=== PATIENT | female | born 1975 | race Caucasian/White ===

== ENCOUNTER 2016-07-28 08:56 | Emergency (ER) | payer SELFPAY ==
[2016-07-28 09:10] VITALS: BP 113/74
[2016-07-28] MEDS ORDERED: HYDROmorphone 1 MG/ML Syringe IM ONE (09:25)
--- NOTE | 2016-07-28 09:26 | EDM.PDOC ---
ED UPPER BACK/NECK PAIN/INJURY - General Chief Complaint: Back Pain or Injury Stated Complaint: BACK PAIN Time Seen by Provider: 07/28/16 09:12 Source of Information: Reports: Patient History Limitations: Reports: No limitations - History of Present Illness INITIAL COMMENTS - FREE TEXT/NARRATIVE: The patient presents with lower thoracic back pain that started about a week ago. A few days ago she got a hair cut and she moved her head forward and that made it worse. She has no numbness, weakness, bowel or bladder problems. Breathing and movement makes it worse. Timing/Duration: Reports: Week(s): (1) Location: Reports: upper Quality: Reports: Sharp Severity: severe Place of Occurrence: home Improves with: Reports: None Worsens with: Reports: None Associated Symptoms: Reports: Denies symptoms - Related Data Allergies/ADRs: Allergies Allergy/AdvReac Type Severity Reaction Status Date / Time Cephalosporins Allergy Unknown Hives Verified 04/26/16 19:33 gabapentin [From Neurontin] AdvReac Unknown Confusion Verified 04/26/16 19:33 clonidine AdvReac Bradycardia Verified 04/26/16 19:33 Home Meds: Home Meds Pregabalin [Lyrica] 1 tab PO TID 06/14/15 [History] Omeprazole 20 mg PO BID 06/16/15 [History] ClonazePAM [KlonoPIN] 0.5 mg PO TID PRN 07/03/15 [History] Methylphenidate HCl [Ritalin] 10 mg PO BID 10/06/15 [History] Sucralfate [Carafate] 10 mg PO TID 10/06/15 [History] traZODone 100 mg PO BEDTIME 10/06/15 [History] Albuterol Sulfate [Proair Hfa] 8.5 gm IH Q4HR PRN 01/19/16 [History] Levofloxacin 500 mg PO DAILY 07/28/16 [History] oxyCODONE HCl/Acetaminophen [Percocet 5-325 mg Tablet] 1 each PO BEDTIME PRN 10/09 [History] Past Medical History HEENT History: Reports: Other (see below) Other HEENT History: dental abscess Cardiovascular History: Reports: Arrhythmia Other Cardiovascular History: SVT, ABLATION Respiratory History: Reports: Asthma Other Respiratory History: NO PROBLEM FOR 15 YRS Gastrointestinal History: Reports: Gastritis, GERD, Helicobacter pylori, PUD Other Gastrointestinal History: ulcers Genitourinary History: Reports: Other (see below) Other Genitourinary History: dysuria 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: Dysfunctional uterine bleeding Other OB/BYN History: Has had 3 miscarriages and hysterectomy Musculoskeletal History: Reports: Back pain, chronic, Fracture, Neck pain, chronic Other Musculoskeletal History: ;RIGHT SHOULDER PAIN, injury to right shoulder one year ago; right roator cuff surgery october Psychiatric History: Reports: ADHD, Anxiety, Depression, Emotional problems, Panic attack, Psych Hospitalization(s), Other (see below) Other Psychiatric History: chronic pain syndrome Endocrine/Metabolic History: Reports: Obesity/BMI 30+, Vitamin D deficiency Hematologic History: Reports: Anemia, Iron deficiency Dermatologic History: Reports: Seborrheic dermatitis Other Dermatologic History: neoplasm of face - Infectious Disease History Infectious Disease History: Reports: Chicken pox - Past Surgical History Other Cardiovascular Surgeries/Procedures: Had an oblation done for the SVT, and has not had any problems with tachycardia, chest pain, or trouble breathing since the procedure Female Surgical History: Reports: D&C, Hysterectomy Musculoskeletal Surgical History: Reports: Shoulder surgery Social & Family History - Family History Family Medical History: Noncontributory GI: Reports: Hepatitis - Tobacco Use Smoking Status *Q: Never Smoker Used Tobacco, but Quit: No Second Hand Smoke Exposure: No - Caffeine Use Caffeine Use: Reports: Energy drinks, Soda - Alcohol Use Days Per Week of Alcohol Use: 0 Number of Drinks Per Day: 4 Total Drinks Per Week: 0 - Recreational Drug Use Recreational Drug Use: No Drug Use in Last 12 Months: No Recreational Drug Type: Reports: LSD (Acid), Marijuana/Hashish, Methamphetamine - Living Situation & Occupation Living situation: Reports: , with significant other Occupation: unemployed ED ROS GENERAL - Review of Systems Review Of Systems: See Below Constitutional: Reports: no symptoms HEENT: Reports: No symptoms Respiratory: Reports: no symptoms Cardiovascular: Reports: No symptoms Endocrine: Reports: no symptoms GI/Abdominal: Reports: No symptoms : Reports: no symptoms Musculoskeletal: Reports: back pain Skin: Reports: no symptoms Neurological: Reports: no symptoms ED EXAM, UPPER BACK/NECK PAIN - Physical Exam Exam: See Below Exam Limited By: No limitations General Appearance: alert, no apparent distress Ears Exam: normal external exam Nose Exam: normal inspection Head Exam: atraumatic, normocephalic Neck Exam: non-tender, normal alignment Cardiovascular/Respiratory: regular rate, rhythm, no M/R/G, normal breath sounds , no respiratory distress GI/Abdominal: soft, non tender, no organomegaly Back Exam: other (Pain upon palpation to the lower thoracic spine worse on the right) Extremities: normal inspection Neurologic: no motor/sensory deficits, alert, oriented x 3 Course - Vital Signs Last Recorded V/S: Last Vital Signs Temp 98.0 F 07/28/16 09:07 Pulse 83 07/28/16 09:07 Resp 20 07/28/16 09:07 BP 113/74 07/28/16 09:07 Pulse Ox 99 07/28/16 09:07 - Re-Assessments/Exams Free Text/Narrative Re-Assessment/Exam: 07/28/16 09:24 I will give her a shot of dilaudid and a few meds. Departure - Departure Time of Disposition: 09:25 Disposition: Home, Self-Care 01 Condition: good Clinical Impression: Thoracic back pain Qualifiers: Chronicity: acute Back pain laterality: right Qualified Code(s): M54.6 - Pain in thoracic spine Referrals: Yusef Ochoa PA-C [Primary Care Provider] - Forms: ED Department Discharge Additional Instructions: Take the muscle relaxer and pain meds as prescribed. Follow up with Yusef Ochoa as needed.
== END 2016-07-28 09:44 | disposition home or self-care (01) ==
LOC: JD.ED 08:56
DX: M54.6 Pain in thoracic spine (principal); J45.909 Unspecified asthma, uncomplicated; K21.9 Gastro-esophageal reflux disease without esophagitis; F41.0 Panic disorder [episodic paroxysmal anxiety]; F32.9 Major depressive disorder, single episode, unspecified; E66.9 Obesity, unspecified; D50.9 Iron deficiency anemia, unspecified; Z85.89 Personal history of malignant neoplasm of other organs and systems; Z90.710 Acquired absence of both cervix and uterus; Z98.890 Other specified postprocedural states; Z79.899 Other long term (current) drug therapy; Z88.1 Allergy status to other antibiotic agents; Z88.8 Allergy status to other drugs, medicaments and biological substances; Z68.41 Body mass index [BMI] 40.0-44.9, adult
CPT/HCPCS: 96372; 99283; J1170; 99284

== ENCOUNTER 2016-08-25 13:36 | Emergency (ER) | payer SELFPAY ==
--- NOTE | 2016-08-25 14:37 | EDM.PDOC ---
ED HPI ENT - General Chief Complaint: ENT Problem Stated Complaint: TOOTH PAIN Time Seen by Provider: 08/25/16 14:03 Source of Information: Reports: Patient, Old records, RN notes reviewed History Limitations: Reports: No limitations - History of Present Illness INITIAL COMMENTS - FREE TEXT/NARRATIVE: The patient states that she has had a upper left toothache on and off for the past few months. She states that she has not seen a dentist about it, citing lack of insurance. She denies recent oral drainage or fever. - Related Data Allergies/ADRs: Allergies Allergy/AdvReac Type Severity Reaction Status Date / Time Cephalosporins Allergy Unknown Hives Verified 08/25/16 14:02 gabapentin [From Neurontin] AdvReac Unknown Confusion Verified 08/25/16 14:02 clonidine AdvReac Bradycardia Verified 08/25/16 14:02 Home Meds: Home Meds Pregabalin [Lyrica] 1 tab PO TID 06/14/15 [History] Omeprazole 20 mg PO BID 06/16/15 [History] ClonazePAM [KlonoPIN] 0.5 mg PO TID PRN 07/03/15 [History] Methylphenidate HCl [Ritalin] 10 mg PO BID 10/06/15 [History] Sucralfate [Carafate] 10 mg PO TID 10/06/15 [History] traZODone 100 mg PO BEDTIME 10/06/15 [History] Albuterol Sulfate [Proair Hfa] 8.5 gm IH Q4HR PRN 01/19/16 [History] oxyCODONE HCl/Acetaminophen [Percocet 5-325 mg Tablet] 1 each PO BEDTIME PRN 10/09 [History] Past Medical History Cardiovascular History: Reports: Arrhythmia (SVT) Respiratory History: Reports: Asthma (remote) Gastrointestinal History: Reports: Gastritis, GERD 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: Dysfunctional uterine bleeding, Spontaneous ( x 3) Musculoskeletal History: Reports: Fracture Psychiatric History: Reports: ADHD, Anxiety, Depression, Emotional problems, Panic attack, Psych Hospitalization(s) Endocrine/Metabolic History: Reports: Obesity/BMI 30+, Vitamin D deficiency Hematologic History: Reports: Anemia, Iron deficiency Dermatologic History: Reports: Seborrheic dermatitis - Infectious Disease History Infectious Disease History: Reports: Chicken pox - Past Surgical History Cardiovascular Surgical History: Reports: Cardiac Ablation Female Surgical History: Reports: D&C (x 1), Hysterectomy Musculoskeletal Surgical History: Reports: Shoulder surgery (arthroscopic right rotator cuff repair 11/09/[address] Cornejo) Social & Family History - Family History Family Medical History: Noncontributory GI: Reports: Hepatitis - Tobacco Use Smoking Status *Q: Never Smoker Second Hand Smoke Exposure: No - Caffeine Use Caffeine Use: Reports: Coffee - Alcohol Use Alcohol Use History: Yes Days Per Week of Alcohol Use: 0 Number of Drinks Per Day: 4 Total Drinks Per Week: 0 Date/Time of Last Drink Comment: Stopped drinking 2011 - Recreational Drug Use Recreational Drug Use: Yes Drug Use in Last 12 Months: No Recreational Drug Type: Reports: LSD (Acid), Marijuana/Hashish, Methamphetamine - Living Situation & Occupation Living situation: Reports: , with significant other (Fiance) Occupation: employed ([employer]) ED ROS ENT - Review of Systems Review Of Systems: See Below Constitutional: Reports: no symptoms HEENT: Reports: Dental pain (as per the HPI) Respiratory: Reports: No Symptoms Cardiovascular: Reports: No symptoms Endocrine: Reports: no symptoms GI/Abdominal: Reports: No symptoms : Reports: no symptoms Musculoskeletal: Reports: no symptoms Skin: Reports: no symptoms Neurological: Reports: No Symptoms Psychiatric: Reports: No symptoms Hematologic/Lymphatic: Reports: no symptoms Immunologic: Reports: no symptoms ED EXAM, ENT - Physical Exam Exam: See Below Exam Limited By: No limitations General Appearance: alert, WD/WN, no apparent distress Eye Exam: bilateral eye: EOMI, normal inspection Ears: normal external exam, normal canal, hearing grossly normal, normal TMs Nose: normal inspection, normal mucousa, no blood Mouth/Throat: Normal lips, Normal oropharynx, Other (Teeth #1, 2, 3, 4, 5 absent. Teeth #6, 7 with gingival plaque. Tooth #8 with medial crack and gingival plaque. Teeth #10, 11 (the teeth of concern) with gingival plaque. Teeth #12, 13, 14, 15, 16, 17, 18, 19, 20 absent. Teeth #21, 22 with gingival plaque. Teeth #26, 27, 28, 29, 30, 31, 32 absent.) Head: atraumatic, normocephalic Neck: normal inspection, supple, non-tender, full range of motion. No: lymphadenopathy (L), lymphadenopathy (R) Course - Vital Signs Last Recorded V/S: Last Vital Signs Temp 36.4 C 08/25/16 14:02 Pulse 74 08/25/16 14:02 Resp 22 H 08/25/16 14:02 BP 132/89 08/25/16 14:02 Pulse Ox 100 08/25/16 14:02 - Re-Assessments/Exams Free Text/Narrative Re-Assessment/Exam: 08/25/16 14:33 The patient is well-known to this ED, with a well documented history of drug seeking behavior. The patient often presents for pain complaints, often on weekends, like today. Review of the [place] PMPi finds that the patient has had 148 prescriptions for controlled substances by 24 prescribers over the past 3 years. The patient has only 12 the remaining teeth, and while she appears to have gingivitis, I do not see a dental infection, therefore am not recommending antibiotics at this time. The patient reports that she cannot take NSAIDs because of peptic ulcer disease, therefore I am recommending Tylenol, however, please note that the patient is already on Percocet, prescribed by Dr. Cornejo , the patient states, for residual pain following arthroscopic shoulder surgery 11/09/2015. Departure - Departure Time of Disposition: 14:35 Disposition: Home, Self-Care 01 Condition: good Clinical Impression: Gingivitis, Dentalgia Instructions: Gingivitis, [id number] Referrals: Yusef Ochoa PA-C [Primary Care Provider] - Forms: ED Department Discharge Additional Instructions: You were seen in the emergency room today for left upper dental pain. On examination, it appears that you have gingivitis, but no dental infection is seen. We are recommending that you brush and floss regularly. Take Tylenol or your already-prescribed Percocet as needed for pain. Followup with a dentist at the next available appointment. If any other problems, please do not hesitate to return to the ER.
== END 2016-08-25 14:48 | disposition home or self-care (01) ==
LOC: JD.ED 13:36
CPT/HCPCS: 99282; 99283

== ENCOUNTER 2016-10-19 17:29 | Emergency (ER) | payer SELFPAY ==
[2016-10-19 17:53] VITALS: BP 127/85
[2016-10-19] MEDS ORDERED: Ketorolac 60 MG/2 ML SDV IM ONE (18:37)
--- NOTE | 2016-10-19 18:41 | EDM.PDOC ---
ED HPI GENERAL MEDICAL PROBLEM - General Chief Complaint: ENT Problem Stated Complaint: TOOTH PAIN Time Seen by Provider: 10/19/16 18:28 Source of Information: Reports: Patient History Limitations: Reports: No Limitations - History of Present Illness INITIAL COMMENTS - FREE TEXT/NARRATIVE: 41-year-old female presents for evaluation and treatment of teeth pain. Patient reports that the pain has been going on for several months. She said the pain was intermittent but over the last few weeks it has been constant. Reviewed the patient's record shows she was in the ER and 08-25-16 for the same complaint. She has not seen dental since last ER visit. She states dental insurance. Last dental visit was one year ago. She is currently scheduled for dental this exam on October 25 in [place]. She is reporting pain to the left upper teeth. States her mouth hurts. She reports associated symptoms of headaches and chills. She also states she has been feeling nauseous. She reports chills but attributes this to low iron levels. Has been using Tylenol and ibuprofen as needed pain relief. The pain is radiating up into her left ear. She denies any vomiting or fevers. Tooth/Teeth Pain Score (Numeric/FACES): 10 - Related Data Allergies Allergy/AdvReac Type Severity Reaction Status Date / Time Cephalosporins Allergy Unknown Hives Verified 08/25/16 14:02 gabapentin [From Neurontin] AdvReac Unknown Confusion Verified 08/25/16 14:02 clonidine AdvReac Bradycardia Verified 08/25/16 14:02 Home Meds: Home Meds Pregabalin [Lyrica] 1 tab PO TID 06/14/15 [History] Omeprazole 20 mg PO BID 06/16/15 [History] ClonazePAM [KlonoPIN] 0.5 mg PO TID PRN 07/03/15 [History] Methylphenidate HCl [Ritalin] 10 mg PO BID 10/06/15 [History] Sucralfate [Carafate] 10 mg PO TID 10/06/15 [History] traZODone 100 mg PO BEDTIME 10/06/15 [History] Albuterol Sulfate [Proair Hfa] 8.5 gm IH Q4HR PRN 01/19/16 [History] oxyCODONE HCl/Acetaminophen [Percocet 5-325 mg Tablet] 1 each PO BEDTIME PRN 10/09 [History] Amoxicillin/Potassium Clav [Augmentin 500-125 Tablet] 1 each PO BID #20 tablet 10/19/16 [Rx] Chlorhexidine Gluconate [Periogard] 15 ml MM BID #1 bottle 10/19/16 [Rx] Past Medical History HEENT History: Reports: Other (See Below) Other HEENT History: dental issues Cardiovascular History: Reports: Arrhythmia Other Cardiovascular History: SVT, ABLATION Respiratory History: Reports: Asthma Other Respiratory History: NO PROBLEM FOR 15 YRS Gastrointestinal History: Reports: Gastritis, GERD Other Gastrointestinal History: ulcers Genitourinary History: Reports: Other (See Below) Other Genitourinary History: dysuria 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, Spontaneous Other OB/BYN History: Has had 3 miscarriages and hysterectomy Musculoskeletal History: Reports: Fracture Other Musculoskeletal History: ;RIGHT SHOULDER PAIN, injury to right shoulder one year ago; right roator cuff surgery october Psychiatric History: Reports: ADHD, Anxiety, Depression, Emotional Problems, Panic Attack, Psych Hospitalization(s) Other Psychiatric History: chronic pain syndrome Endocrine/Metabolic History: Reports: Obesity/BMI 30+, Vitamin D Deficiency Hematologic History: Reports: Anemia, Iron Deficiency Dermatologic History: Reports: Seborrheic Dermatitis Other Dermatologic History: neoplasm of face - Infectious Disease History Infectious Disease History: Reports: Chicken Pox - Past Surgical History HEENT Surgical History: Reports: Oral Surgery Cardiovascular Surgical History: Reports: Cardiac Ablation Musculoskeletal Surgical History: Reports: Shoulder Surgery Dermatological Surgical History: Reports: Skin Biopsy Social & Family History - Family History Family Medical History: Noncontributory GI: Reports: Hepatitis - Tobacco Use Smoking Status *Q: Never Smoker Used Tobacco, but Quit: No Second Hand Smoke Exposure: No - Caffeine Use Caffeine Use: Reports: Energy Drinks, Soda - Alcohol Use Days Per Week of Alcohol Use: 0 Number of Drinks Per Day: 4 Total Drinks Per Week: 0 - Recreational Drug Use Recreational Drug Use: No Drug Use in Last 12 Months: No Recreational Drug Type: Reports: LSD (Acid), Marijuana/Hashish, Methamphetamine - Living Situation & Occupation Living situation: Reports: , with Significant Other Occupation: Employed ED ROS ENT - Review of Systems Review Of Systems: See Below Constitutional: Reports: Chills (due to low iron). Denies: Fever HEENT: Reports: Dental Pain (entire mouth; left upper teeth most painful), Ear Pain (left) GI/Abdominal: Reports: Nausea. Denies: Vomiting Neurological: Reports: Headache ED EXAM, ENT - Physical Exam Exam: See Below Exam Limited By: No Limitations General Appearance: Alert, WD/WN, No Apparent Distress Ears: Normal External Exam, Normal Canal, Hearing Grossly Normal, Normal TMs Nose: Normal Inspection Mouth/Throat: Normal Inspection, Dental Tenderness (all teeth; teeth 6-11 present 10 and 11 most painful; teeth 21 and 22 present and painful; diffuse plaque present, minimal gingivitis present; #8 fractured; no obvious dental abscess). No: Dental Abcess Neck: Normal Inspection. No: Lymphadenopathy (L), Lymphadenopathy (R) Respiratory/Chest: No Respiratory Distress, Lungs Clear, Normal Breath Sounds Cardiovascular: Normal Peripheral Pulses, Regular Rate, Rhythm, No Murmur Neurological: Alert, Oriented, Normal Cognition Psychiatric: Normal Affect, Normal Mood Skin: Warm, Dry, Normal Color Course - Vital Signs Last Recorded V/S: Last Vital Signs Temp 36.5 C 10/19/16 17:51 Pulse 71 10/19/16 17:51 Resp 20 10/19/16 17:51 BP 127/85 10/19/16 17:51 Pulse Ox 99 10/19/16 17:51 - Orders/Labs/Meds Meds: Medications Discontinued Medications Generic Name Dose Route Start Last Admin Trade Name Clementine PRN Reason Stop Dose Admin Ketorolac Tromethamine 60 mg 10/19/16 18:37 Toradol IM 10/19/16 18:38 ONETIME ONE - Re-Assessments/Exams Free Text/Narrative Re-Assessment/Exam: 10/19/16 18:40 I discussed with the patient that I am unable to provide her any narcotic medications. She has a history of drug-seeking behavior. 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 Brayden otoole. We discussed a Toradol injection here to help with the pain. She agrees to this. We discussed antibiotics. I do not see any obvious dental abscess but due to her pain complaint there is possibly some infection in the dental roots I am unable to see. We'll go ahead and start an antibiotic. Discharge instructions as documented. 10/19/16 18:48 Nursing staff has come and let me know the patient eloped prior to toradol administration.. She has not received her prescriptions. Departure - Departure Time of Disposition: 18:38 Disposition: Home, Self-Care 01 Condition: fair Clinical Impression: Dental caries, Dentalgia - Discharge Information Prescriptions: Amoxicillin/Potassium Clav [Augmentin 500-125 Tablet] 1 each PO BID #20 tablet Chlorhexidine Gluconate [Periogard] 15 ml MM BID #1 bottle Instructions: Dental Caries, [id number] Referrals: Yusef Ochoa PA-C [Primary Care Provider] - Forms: ED Department Discharge Additional Instructions: Continue with the tyleonl and percocet you have at home for pain relief. Take augmentin 1 tab PO bid x 10 days. Take with food. peridex mouthwash bid. swish and spit 15mls PO bid. Follow-up with dental as planned. Please return to the ER should your symptoms change or worsen.
== END 2016-10-19 18:50 | disposition home or self-care (01) ==
LOC: JD.ED 17:29
DX: K02.9 Dental caries, unspecified (principal); K08.89 Other specified disorders of teeth and supporting structures; J45.909 Unspecified asthma, uncomplicated; K21.9 Gastro-esophageal reflux disease without esophagitis; F32.9 Major depressive disorder, single episode, unspecified; F41.0 Panic disorder [episodic paroxysmal anxiety]; E66.9 Obesity, unspecified; Z68.41 Body mass index [BMI] 40.0-44.9, adult; Z98.890 Other specified postprocedural states; Z79.899 Other long term (current) drug therapy; Z88.8 Allergy status to other drugs, medicaments and biological substances
CPT/HCPCS: 99283

== ENCOUNTER 2017-01-10 16:42 | Emergency (ER) | payer SELFPAY ==
[2017-01-10 17:13] VITALS: BP 151/96
--- NOTE | 2017-01-10 17:30 | EDM.PDOC ---
ED HPI GENERAL MEDICAL PROBLEM - General Chief Complaint: General Stated Complaint: MEDICATION QUESTIONS Time Seen by Provider: 01/10/17 17:13 Source of Information: Reports: Patient, RN Notes Reviewed History Limitations: Reports: No Limitations - History of Present Illness INITIAL COMMENTS - FREE TEXT/NARRATIVE: The patient states that she is prescribed Celexa, Klonopin, and methylphenidate by Carla Lockhart, and that the description is are filled by mail order, monthly. She states that Ms. Lockhart wrote the prescription, however, her methylphenidate has not yet arrived in the mail, and is not expected to until some time next week. She states that she ran out of this medication this past 01/07/2017. She states that she has attempted to contact Ms. Lockhart, but that she has only been able to reach her nurse. She states that she contacted her PCP, Yusef Ochoa, but that since the medicine is a controlled substance, the prescription would have to be delivered in person, and cannot be called in. She states that he is in [place], and that she is either unwilling or unable to drive there to pickup driver the prescription. She is requesting a prescription for several days to tide her through until her mail order prescription arrives. Headache Pain Score (Numeric/FACES): 6 - Related Data Allergies Allergy/AdvReac Type Severity Reaction Status Date / Time Cephalosporins Allergy Unknown Hives Verified 01/10/17 17:13 gabapentin [From Neurontin] AdvReac Unknown Confusion Verified 01/10/17 17:13 clonidine AdvReac Bradycardia Verified 01/10/17 17:13 Home Meds: Home Meds Pregabalin [Lyrica] 1 tab PO TID 06/14/15 [History] Omeprazole 20 mg PO BID 06/16/15 [History] ClonazePAM [KlonoPIN] 0.5 mg PO TID PRN 07/03/15 [History] Methylphenidate HCl [Ritalin] 10 mg PO BID 10/06/15 [History] Sucralfate [Carafate] 10 mg PO TID 10/06/15 [History] traZODone 100 mg PO BEDTIME 10/06/15 [History] Albuterol Sulfate [Proair Hfa] 8.5 gm IH Q4HR PRN 01/19/16 [History] oxyCODONE HCl/Acetaminophen [Percocet 5-325 mg Tablet] 1 each PO BEDTIME PRN 10/09 [History] Ondansetron [Zofran ODT] 4 mg SL Q4HR PRN 01/10/17 [History] Past Medical History Cardiovascular History: Reports: Arrhythmia (SVT) Respiratory History: Reports: Asthma (remote) Gastrointestinal History: Reports: Gastritis, GERD 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: Dysfunctional Uterine Bleeding, Spontaneous ( x 3) Musculoskeletal History: Reports: Fracture Psychiatric History: Reports: ADHD, Anxiety, Depression, Emotional Problems, Panic Attack, Psych Hospitalization(s) Endocrine/Metabolic History: Reports: Obesity/BMI 30+, Vitamin D Deficiency Hematologic History: Reports: Anemia, Iron Deficiency Dermatologic History: Reports: Seborrheic Dermatitis - Infectious Disease History Infectious Disease History: Reports: Chicken Pox - Past Surgical History HEENT Surgical History: Reports: Oral Surgery Cardiovascular Surgical History: Reports: Cardiac Ablation Female Surgical History: Reports: D&C (x 1), Hysterectomy Musculoskeletal Surgical History: Reports: Shoulder Surgery (arthroscopic right rotator cuff repair 11/09/[address] Cornejo) Social & Family History - Family History Family Medical History: Noncontributory GI: Reports: Hepatitis - Tobacco Use Smoking Status *Q: Never Smoker Second Hand Smoke Exposure: No - Caffeine Use Caffeine Use: Reports: Energy Drinks, Soda - Alcohol Use Alcohol Use History: Yes Date/Time of Last Drink Comment: Stopped drinking 2011 - Recreational Drug Use Recreational Drug Use: Yes Drug Use in Last 12 Months: No Recreational Drug Type: Reports: LSD (Acid), Marijuana/Hashish, Methamphetamine - Living Situation & Occupation Living situation: Reports: , with Significant Other (Fiance) Occupation: Employed ([employer]) ED ROS GENERAL - Review of Systems Review Of Systems: See Below Constitutional: Reports: No Symptoms HEENT: Reports: No Symptoms Respiratory: Reports: No Symptoms Cardiovascular: Reports: No Symptoms Endocrine: Reports: No Symptoms GI/Abdominal: Reports: No Symptoms : Reports: No Symptoms Musculoskeletal: Reports: No Symptoms Skin: Reports: No Symptoms Neurological: Reports: No Symptoms Psychiatric: Reports: No Symptoms Hematologic/Lymphatic: Reports: No Symptoms Immunologic: Reports: No Symptoms ED EXAM, GENERAL - Physical Exam Exam: See Below Exam Limited By: No Limitations General Appearance: Alert, WD/WN, No Apparent Distress Eye Exam: Bilateral Eye: Normal Inspection Ears: Normal External Exam, Hearing Grossly Normal Nose: Normal Inspection, No Blood Throat/Mouth: Normal Inspection, Normal Lips, Normal Voice, No Airway Compromise Head: Atraumatic, Normocephalic Neck: Normal Inspection, Full Range of Motion Neurological: Alert, Oriented Psychiatric: Normal Affect Course - Vital Signs Last Recorded V/S: Last Vital Signs Temp 36.2 C 01/10/17 17:09 Pulse 66 01/10/17 17:09 Resp 18 01/10/17 17:09 BP 151/96 H 01/10/17 17:09 Pulse Ox 100 01/10/17 17:09 - Re-Assessments/Exams Free Text/Narrative Re-Assessment/Exam: 01/10/17 17:26 The patient is requesting a short-term refill of methylphenidate, however, this is a controlled substance with a high potential for abuse, therefore I do not feel it would be appropriate for the ED to refill this. She will need to make arrangements through either the prescriber, Nahomy Lockhart, or her PCP, Yusef Ochoa. 01/10/17 17:32 Notified by the patient's nurse that the patient did not wait for discharge instructions, and left the ED without notice. Departure - Departure Time of Disposition: 17:27 Disposition: Home, Self-Care 01 Condition: Good Clinical Impression: Medication requested by patient but not prescribed or administered - Discharge Information Referrals: Yusef Ochoa PA-C [Primary Care Provider] - Carla Lockhart NP [Nurse Practitioner] - Forms: ED Department Discharge Additional Instructions: You were seen in the emergency room requesting a short-term refill of methylphenidate. Unfortunately, this is a controlled substance, therefore the ER is not able to refill this medicine. You will need to arrange for a refill through your prescriber, Carla Lockhart, or your PCP, Yusef Ochoa. If any other problems, please do not hesitate to return to the ER.
== END 2017-01-10 17:30 | disposition home or self-care (01) ==
LOC: JD.ED 16:42
DX: Z76.0 Encounter for issue of repeat prescription (principal); J45.909 Unspecified asthma, uncomplicated; K21.9 Gastro-esophageal reflux disease without esophagitis; F32.9 Major depressive disorder, single episode, unspecified; F41.0 Panic disorder [episodic paroxysmal anxiety]; E66.9 Obesity, unspecified; Z86.2 Personal history of diseases of the blood and blood-forming organs and certain disorders involving the immune mechanism; Z90.710 Acquired absence of both cervix and uterus; Z98.890 Other specified postprocedural states; Z88.1 Allergy status to other antibiotic agents; Z88.8 Allergy status to other drugs, medicaments and biological substances; Z68.37 Body mass index [BMI] 37.0-37.9, adult
CPT/HCPCS: 99281; 99282

== ENCOUNTER 2017-03-10 07:59 | Emergency (ER) | payer SELFPAY ==
[2017-03-10 08:09] VITALS: BP 122/54
--- NOTE | 2017-03-10 08:35 | EDM.PDOC ---
ED HPI GENERAL MEDICAL PROBLEM - General Chief Complaint: ENT Problem Stated Complaint: TOOTH PAIN Time Seen by Provider: 03/10/17 08:16 Source of Information: Reports: Patient History Limitations: Reports: No Limitations - History of Present Illness INITIAL COMMENTS - FREE TEXT/NARRATIVE: The patient presents with dental pain to the left lower canine tooth. This started last week. This has been an ongoing problem but it flared up this past week. She has no fever or chills. She does see Dr Daugherty a dentist in town but she has no insurance at this time. Onset: Gradual Duration: Week(s): (1) Location: Reports: Face (Left lower jaw) Quality: Reports: Sharp Severity: Severe Improves with: Reports: None Worsens with: Reports: None Associated Symptoms: Reports: No Other Symptoms Left Tooth/Teeth Pain Score (Numeric/FACES): 10 - Related Data Allergies Allergy/AdvReac Type Severity Reaction Status Date / Time Cephalosporins Allergy Unknown Hives Verified 03/10/17 08:09 gabapentin [From Neurontin] AdvReac Unknown Confusion Verified 03/10/17 08:09 clonidine AdvReac Bradycardia Verified 03/10/17 08:09 Home Meds: Home Meds Pregabalin [Lyrica] 1 tab PO TID 06/14/15 [History] Omeprazole 20 mg PO BID 06/16/15 [History] ClonazePAM [KlonoPIN] 0.5 mg PO TID PRN 07/03/15 [History] Methylphenidate HCl [Ritalin] 10 mg PO BID 10/06/15 [History] Sucralfate [Carafate] 10 mg PO TID PRN 10/06/15 [History] traZODone 100 mg PO BEDTIME 10/06/15 [History] Albuterol Sulfate [Proair Hfa] 8.5 gm IH Q4HR PRN 01/19/16 [History] oxyCODONE HCl/Acetaminophen [Percocet 5-325 mg Tablet] 1 each PO BEDTIME PRN 10/09 [History] Hydrocodone/Acetaminophen [Hydrocodon-Acetaminophen 5-325] 1 - 2 each PO Q6HR PRN #20 tablet 03/10/17 [Rx] Montelukast [Singulair] 10 mg PO BEDTIME 03/10/17 [History] Penicillin V Potassium 500 mg PO Q6HR #40 tab 03/10/17 [Rx] Past Medical History HEENT History: Reports: Other (See Below) Other HEENT History: dental issues Cardiovascular History: Reports: Arrhythmia Other Cardiovascular History: SVT, ABLATION Respiratory History: Reports: Asthma Other Respiratory History: NO PROBLEM FOR 15 YRS Gastrointestinal History: Reports: Gastritis, GERD Other Gastrointestinal History: ulcers Genitourinary History: Reports: Other (See Below) Other Genitourinary History: dysuria 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: Dysfunctional Uterine Bleeding, , Spontaneous Other OB/BYN History: Has had 3 miscarriages and hysterectomy Musculoskeletal History: Reports: Fracture Other Musculoskeletal History: nose Psychiatric History: Reports: ADHD, Anxiety, Depression, Emotional Problems, Panic Attack, Psych Hospitalization(s) Other Psychiatric History: chronic pain syndrome Endocrine/Metabolic History: Reports: Obesity/BMI 30+, Vitamin D Deficiency Hematologic History: Reports: Anemia, Iron Deficiency Dermatologic History: Reports: Seborrheic Dermatitis Other Dermatologic History: neoplasm of face - Infectious Disease History Infectious Disease History: Reports: Chicken Pox - Past Surgical History HEENT Surgical History: Reports: Oral Surgery Cardiovascular Surgical History: Reports: Cardiac Ablation Female Surgical History: Reports: D&C, Hysterectomy Musculoskeletal Surgical History: Reports: Shoulder Surgery Social & Family History - Family History Family Medical History: Noncontributory GI: Reports: Hepatitis - Tobacco Use Smoking Status *Q: Never Smoker Used Tobacco, but Quit: No Second Hand Smoke Exposure: No - Caffeine Use Caffeine Use: Reports: Soda - Alcohol Use Days Per Week of Alcohol Use: 0 Number of Drinks Per Day: 4 Total Drinks Per Week: 0 - Recreational Drug Use Recreational Drug Use: No Drug Use in Last 12 Months: No Recreational Drug Type: Reports: LSD (Acid), Marijuana/Hashish, Methamphetamine - Living Situation & Occupation Living situation: Reports: , with Significant Other (Fiance) Occupation: Employed ([employer]) ED ROS ENT - Review of Systems Review Of Systems: See Below Constitutional: Reports: No Symptoms HEENT: Reports: Dental Pain Respiratory: Reports: No Symptoms Cardiovascular: Reports: No Symptoms Endocrine: Reports: No Symptoms GI/Abdominal: Reports: No Symptoms : Reports: No Symptoms Musculoskeletal: Reports: No Symptoms ED EXAM, ENT - Physical Exam Exam: See Below Exam Limited By: No Limitations General Appearance: Alert, No Apparent Distress Ears: Normal External Exam Nose: Normal Inspection Mouth/Throat: Other (Pain upon palpation and edema to the left lower canine tooth) Course - Vital Signs Last Recorded V/S: Last Vital Signs Temp 97.1 F 03/10/17 08:06 Pulse 56 L 03/10/17 08:06 Resp 16 03/10/17 08:06 BP 122/54 L 03/10/17 08:06 Pulse Ox 100 03/10/17 08:06 Departure - Departure Time of Disposition: 08:35 Disposition: Home, Self-Care 01 Condition: Good Clinical Impression: Dental abscess, Toothache - Discharge Information Prescriptions: Hydrocodone/Acetaminophen [Hydrocodon-Acetaminophen 5-325] 1 - 2 each PO Q6HR PRN #20 tablet PRN Reason: Pain Penicillin V Potassium 500 mg PO Q6HR #40 tab Referrals: Yusef Ochoa PA-C [Primary Care Provider] - Additional Instructions: Take your medication as prescribed. Get rid of any antibiotics you may have at your house. Follow up with your dentist.
== END 2017-03-10 08:52 | disposition home or self-care (01) ==
LOC: JD.ED 07:59
DX: K04.7 Periapical abscess without sinus (principal); Z88.1 Allergy status to other antibiotic agents; Z79.899 Other long term (current) drug therapy; J45.909 Unspecified asthma, uncomplicated; F32.9 Major depressive disorder, single episode, unspecified; F90.9 Attention-deficit hyperactivity disorder, unspecified type; D64.9 Anemia, unspecified
CPT/HCPCS: 99283

== ENCOUNTER 2017-05-03 08:48 | Emergency (ER) | payer SELFPAY ==
[2017-05-03 09:20] VITALS: BP 107/67
--- NOTE | 2017-05-03 10:21 | EDM.PDOC ---
ED HPI GENERAL MEDICAL PROBLEM - General Chief Complaint: Lower Extremity Injury/Pain Stated Complaint: R HIP LEG/PAIN Time Seen by Provider: 05/03/17 10:16 - History of Present Illness INITIAL COMMENTS - FREE TEXT/NARRATIVE: 41-year-old female presents emergency room with right hip pain. Yesterday at work patient slipped on some on the floor and started do the splits however she caught herself and did not fall. After this she developed progressively worsening pain in the posterior buttox of the right hip. Right Hip Pain Score (Numeric/FACES): 8 - Related Data Allergies Allergy/AdvReac Type Severity Reaction Status Date / Time Cephalosporins Allergy Unknown Hives Verified 05/03/17 09:12 gabapentin [From Neurontin] AdvReac Unknown Confusion Verified 05/03/17 09:12 clonidine AdvReac Bradycardia Verified 05/03/17 09:12 Home Meds: Home Meds Pregabalin [Lyrica] 1 tab PO TID 06/14/15 [History] Omeprazole 20 mg PO BID 06/16/15 [History] ClonazePAM [KlonoPIN] 0.5 mg PO TID PRN 07/03/15 [History] Methylphenidate HCl [Ritalin] 10 mg PO BID 10/06/15 [History] Sucralfate [Carafate] 10 mg PO TID PRN 10/06/15 [History] traZODone 100 mg PO BEDTIME 10/06/15 [History] Albuterol Sulfate [Proair Hfa] 8.5 gm IH Q4HR PRN 01/19/16 [History] oxyCODONE HCl/Acetaminophen [Percocet 5-325 mg Tablet] 1 each PO BEDTIME PRN 10/09 [History] Montelukast [Singulair] 10 mg PO BEDTIME 03/10/17 [History] Past Medical History HEENT History: Reports: Other (See Below) Other HEENT History: dental issues Cardiovascular History: Reports: Arrhythmia Other Cardiovascular History: SVT, ABLATION Respiratory History: Reports: Asthma Other Respiratory History: NO PROBLEM FOR 15 YRS Gastrointestinal History: Reports: Gastritis, GERD Other Gastrointestinal History: ulcers Genitourinary History: Reports: Other (See Below) Other Genitourinary History: dysuria 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: Dysfunctional Uterine Bleeding, , Spontaneous Other OB/BYN History: Has had 3 miscarriages and hysterectomy Musculoskeletal History: Reports: Fracture Other Musculoskeletal History: nose Psychiatric History: Reports: ADHD, Anxiety, Depression, Emotional Problems, Panic Attack, Psych Hospitalization(s) Other Psychiatric History: chronic pain syndrome Endocrine/Metabolic History: Reports: Obesity/BMI 30+, Vitamin D Deficiency Hematologic History: Reports: Anemia, Iron Deficiency Dermatologic History: Reports: Seborrheic Dermatitis Other Dermatologic History: neoplasm of face - Infectious Disease History Infectious Disease History: Reports: Chicken Pox - Past Surgical History HEENT Surgical History: Reports: Oral Surgery Cardiovascular Surgical History: Reports: Cardiac Ablation Female Surgical History: Reports: D&C, Hysterectomy Musculoskeletal Surgical History: Reports: Shoulder Surgery Social & Family History - Family History Family Medical History: Noncontributory GI: Reports: Hepatitis - Tobacco Use Smoking Status *Q: Never Smoker Used Tobacco, but Quit: No Second Hand Smoke Exposure: No - Caffeine Use Caffeine Use: Reports: Soda - Alcohol Use Days Per Week of Alcohol Use: 0 Number of Drinks Per Day: 4 Total Drinks Per Week: 0 - Recreational Drug Use Recreational Drug Use: No Drug Use in Last 12 Months: No Recreational Drug Type: Reports: LSD (Acid), Marijuana/Hashish, Methamphetamine - Living Situation & Occupation Living situation: Reports: , with Significant Other (Fiance) 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) Review of Systems - Review of Systems Review Of Systems: See Below Respiratory: Reports: No Symptoms Cardiovascular: Reports: No Symptoms GI/Abdominal: Reports: No Symptoms, Other (She has significant history of ulcer disease but this is not acting up at this time) ED EXAM, GENERAL - Physical Exam Exam: See Below Exam Limited By: No Limitations General Appearance: Alert, No Apparent Distress Respiratory/Chest: No Respiratory Distress, Lungs Clear, Normal Breath Sounds Cardiovascular: Regular Rate, Rhythm, No Edema, No Murmur Back Exam: Normal Inspection, Muscle Spasm (She has some muscle tightness right Buttox into the hip involving mostly the posterior muscles. She has no spinous process discomfort straight leg raises do not cause pain below the knees.). No : Vertebral Tenderness Extremities: Other (Examination of her right hip no significant tenderness into the into the posterior muscles no pain over the greater trochanter.) Course - Vital Signs Last Recorded V/S: Last Vital Signs Temp 36.1 C 05/03/17 09:16 Pulse 69 05/03/17 09:16 Resp BP 107/67 05/03/17 09:16 Pulse Ox 99 05/03/17 09:16 - Re-Assessments/Exams Free Text/Narrative Re-Assessment/Exam: 05/03/17 11:00 Patient has a right hip strain involving the posterior muscles. She is intolerant and cannot take nonsteroidal anti-inflammatory medications because of advanced peptic ulcer disease. Prednisone is not an option as she does not do well on it. We'll give her a few Percocet 1 every 6 hours as needed she received #10 from the machine out in the waiting room. Departure - Departure Time of Disposition: 11:01 Disposition: Home, Self-Care 01 Clinical Impression: Strain of right hip - Discharge Information Referrals: Yusef Ochoa PA-C [Primary Care Provider] - Forms: ED Department Discharge Additional Instructions: Return to the emergency room with any questions problems or worsening symptoms. Follow up with your regular provider for recheck early this next week. I have given you a few Percocet take one every 6 hours only as needed for pain. Allow 12 hours after using this medication before driving or returning to work.
== END 2017-05-03 11:10 | disposition home or self-care (01) ==
LOC: JD.ED 08:48
DX: S76.011A Strain of muscle, fascia and tendon of right hip, initial encounter (principal); Z88.5 Allergy status to narcotic agent; Z79.899 Other long term (current) drug therapy; W18.40XA Slipping, tripping and stumbling without falling, unspecified, initial encounter
CPT/HCPCS: 99282; 99283

== ENCOUNTER 2017-06-15 09:08 | Emergency (ER) | payer SELFPAY ==
[2017-06-15 09:22] VITALS: BP 150/87
[2017-06-15] MEDS ORDERED: Acetaminophen/oxyCODONE 325-5 MG Tab PO ONE (09:26)
[2017-06-15] MEDS ORDERED: Ondansetron 4 MG Tab.DIS PO ONE (09:27)
--- NOTE | 2017-06-15 09:28 | EDM.PDOC ---
ED HPI GENERAL MEDICAL PROBLEM - General Chief Complaint: Respiratory Problem Stated Complaint: COUGH/HEADACHE/FEVER Time Seen by Provider: 06/15/17 09:22 Source of Information: Reports: Patient History Limitations: Reports: No Limitations - History of Present Illness INITIAL COMMENTS - FREE TEXT/NARRATIVE: 41-year-old female presents to the ED with generalized myalgia associated severe headache paroxysmal intermittent mostly dry cough that started suddenly on Friday p.m. June 11. She was exposed to influenza apparently threw her boss at work who was ill 2 weeks ago. She did not receive a flu shot last year. To her knowledge she's never had influenza before. Is currently taking Tylenol and Mucinex for pain relief. States she can't take anti-inflammatories due to ulcers. Appreciates pain on lateral gaze bilaterally. Headache is constant pounding and throbbing and worsened by coughing. No vomiting no diarrhea. Very poor appetite. Onset: Sudden Onset Date: 06/11/17 Duration: Day(s): Location: Reports: Head (Severe headache), Chest (Paroxysmal nonproductive cough ), Generalized Quality: Reports: Ache Severity: Severe Improves with: Reports: None Worsens with: Reports: None Context: Reports: Sick Contact (Exposed to influenza). Denies: Activity, Exercise, Lifting, Trauma ( through her boss at the workplace.), Other Associated Symptoms: Reports: Cough, Fever/Chills, Headaches, Loss of Appetite, Malaise, Weakness. 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: Acetaminophen Headache Pain Score (Numeric/FACES): 10 - Related Data Allergies Allergy/AdvReac Type Severity Reaction Status Date / Time Cephalosporins Allergy Unknown Hives Verified 06/15/17 09:18 gabapentin [From Neurontin] AdvReac Unknown Confusion Verified 06/15/17 09:18 clonidine AdvReac Bradycardia Verified 06/15/17 09:18 Home Meds: Home Meds Pregabalin [Lyrica] 1 tab PO TID 06/14/15 [History] Omeprazole 20 mg PO BID 06/16/15 [History] ClonazePAM [KlonoPIN] 0.5 mg PO TID PRN 07/03/15 [History] Methylphenidate HCl [Ritalin] 10 mg PO BID 10/06/15 [History] Sucralfate [Carafate] 10 mg PO TID PRN 10/06/15 [History] traZODone 100 mg PO BEDTIME 10/06/15 [History] Albuterol Sulfate [Proair Hfa] 8.5 gm IH Q4HR PRN 01/19/16 [History] oxyCODONE HCl/Acetaminophen [Percocet 5-325 mg Tablet] 1 each PO BEDTIME PRN 10/09 [History] Montelukast [Singulair] 10 mg PO BEDTIME 03/10/17 [History] Chlorpheniramine/HYDROcodone [Tussionex Pennkinetic] 5 ml PO Q12HR #60 ml [Rx] Oseltamivir [Tamiflu] 75 mg PO BID #9 cap 06/15/17 [Rx] Past Medical History HEENT History: Reports: Other (See Below) Other HEENT History: dental issues Cardiovascular History: Reports: Arrhythmia Other Cardiovascular History: SVT, ABLATION Respiratory History: Reports: Asthma Other Respiratory History: NO PROBLEM FOR 15 YRS Gastrointestinal History: Reports: Gastritis, GERD Other Gastrointestinal History: ulcers Genitourinary History: Reports: Other (See Below) Other Genitourinary History: dysuria 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: Dysfunctional Uterine Bleeding, , Spontaneous Other OB/BYN History: Has had 3 miscarriages and hysterectomy Musculoskeletal History: Reports: Fracture Other Musculoskeletal History: nose Psychiatric History: Reports: ADHD, Anxiety, Depression, Emotional Problems, Panic Attack, Psych Hospitalization(s) Other Psychiatric History: chronic pain syndrome Endocrine/Metabolic History: Reports: Obesity/BMI 30+, Vitamin D Deficiency Hematologic History: Reports: Anemia, Iron Deficiency Dermatologic History: Reports: Seborrheic Dermatitis Other Dermatologic History: neoplasm of face - Infectious Disease History Infectious Disease History: Reports: Chicken Pox - Past Surgical History HEENT Surgical History: Reports: Oral Surgery Cardiovascular Surgical History: Reports: Cardiac Ablation Female Surgical History: Reports: D&C, Hysterectomy Musculoskeletal Surgical History: Reports: Shoulder Surgery Social & Family History - Family History Family Medical History: Noncontributory GI: Reports: Hepatitis - Tobacco Use Smoking Status *Q: Never Smoker Used Tobacco, but Quit: No Second Hand Smoke Exposure: No - Caffeine Use Caffeine Use: Reports: Soda - Alcohol Use Days Per Week of Alcohol Use: 0 Number of Drinks Per Day: 4 Total Drinks Per Week: 0 - Recreational Drug Use Recreational Drug Use: No Drug Use in Last 12 Months: No Recreational Drug Type: Reports: LSD (Acid), Marijuana/Hashish, Methamphetamine - Living Situation & Occupation Living situation: Reports: , with Significant Other (Fiance) Occupation: Employed ([employer]) ED ROS GENERAL - Review of Systems Review Of Systems: See Below Constitutional: Reports: Fever, Chills, Malaise, Weakness, Fatigue, Decreased Appetite, Weight Loss HEENT: Reports: Eye Pain (When looking to the side.) Respiratory: Reports: Cough. Denies: Shortness of Breath, Wheezing, Pleuritic Chest Pain, Sputum, Hemoptysis, Other Cardiovascular: Reports: No Symptoms Endocrine: Reports: No Symptoms GI/Abdominal: Reports: Anorexia : Reports: No Symptoms Musculoskeletal: Reports: Muscle Pain Skin: Reports: No Symptoms (Generalized severe myalgia.) Neurological: Reports: Dizziness, Headache (Constant throbbing pounding headache for 3 days.) Psychiatric: Reports: No Symptoms Hematologic/Lymphatic: Reports: No Symptoms Immunologic: Reports: No Symptoms ED EXAM, GENERAL - Physical Exam Exam: See Below Exam Limited By: No Limitations General Appearance: Alert, WD/WN, Mild Distress (Appears ill.), Other (Afebrile at this time) Eye Exam: Bilateral Eye: Normal Inspection Ears: Normal TMs Throat/Mouth: Normal Inspection, Normal Lips, Normal Oropharynx Head: Atraumatic, Normocephalic Neck: Normal Inspection, Supple, Non-Tender, Full Range of Motion. No: Lymphadenopathy (L), Lymphadenopathy (R) Respiratory/Chest: No Respiratory Distress, Lungs Clear, Normal Breath Sounds, No Accessory Muscle Use Cardiovascular: Normal Peripheral Pulses, Regular Rate, Rhythm, No Edema, No Gallop, No Murmur GI/Abdominal: Normal Bowel Sounds, Soft, Non-Tender, No Organomegaly Extremities: Normal Inspection, Normal Range of Motion, Non-Tender, No Pedal Edema Neurological: Alert, Oriented, CN II-XII Intact, Normal Cognition Psychiatric: Normal Affect, Normal Mood Skin Exam: Warm, Dry, Intact, Normal Color, No Rash Course - Vital Signs Last Recorded V/S: Last Vital Signs Temp 36.8 C 06/15/17 09:18 Pulse 70 06/15/17 09:18 Resp 18 06/15/17 09:18 BP 150/87 H 06/15/17 09:18 Pulse Ox 97 06/15/17 09:18 - Orders/Labs/Meds Meds: Medications Discontinued Medications Generic Name Dose Route Start Last Admin Trade Name Clementine PRN Reason Stop Dose Admin Ondansetron HCl 4 mg 06/15/17 09:27 06/15/17 09:32 Zofran Odt PO 06/15/17 09:28 4 mg ONETIME ONE Administration Oseltamivir Phosphate 75 mg 06/15/17 10:30 06/15/17 10:42 Tamiflu PO 06/15/17 10:31 75 mg ONETIME ONE Administration Oxycodone/Acetaminophen 2 tab 06/15/17 09:26 06/15/17 09:32 Percocet 325-5 Mg PO 06/15/17 09:27 2 tab ONETIME ONE Administration - Radiology Interpretation Free Text/Narrative:: 41-year-old female presents to the ED with acute onset of generalized myalgia paroxysmal nonproductive cough headache and anorexia is starting Friday evening June 11. She has been exposed to influenza in the workplace. Examination reveals no other signs of bacterial infection. Plan influenza screen. Given Percocet 2 by mouth for headache and cough relief. Zofran 4 mg sublingually as well. Strongly suspect she has influenza. - Re-Assessments/Exams Free Text/Narrative Re-Assessment/Exam: 06/15/17 10:30 Results reveal influenza A positivity. Given initial dose of Tamiflu 75 mg by mouth in the ED. will be discharged on Tamiflu to complete 75 mg twice a day for full 10 days. Tussionex cough syrup 5 mils every 12 hours. For cough relief. Advised to be off work for at least another 4 days as she is considered contagious for up to a week after symptoms started which was last Friday. She will continue use Aleve or Motrin for headache bodyache and fever relief. She's feeling improved from the medications we gave her in the ED. Departure - Departure Time of Disposition: 10:44 Disposition: Home, Self-Care 01 Condition: Fair Clinical Impression: Influenza A - Discharge Information Prescriptions: Chlorpheniramine/HYDROcodone [Tussionex Pennkinetic] 5 ml PO Q12HR #60 ml Oseltamivir [Tamiflu] 75 mg PO BID #9 cap Instructions: Influenza, Adult, [id number] Referrals: Yusef Ochoa PA-C [Primary Care Provider] - Forms: ED Department Discharge, ED Return to Work/School Form Additional Instructions: Evaluation the emergency room in regards to sudden onset of high fever associate with a really bad headache and generalized muscle aches and pains and paroxysmal mainly nonproductive cough. Lines and symptoms of influenza which is going to the community right abruptly at present. Your test was positive for influenza type A. treatment is therefore plenty of fluids and diet as tolerated. Motrin 600 mg every 6 hours or Aleve 2 tablets every 8 hours to reduce body aches and pains and fever and headache relief. Cough syrup is Tussionex 5 mils every 12 hours as needed for relief of cough. Take a good hour before planning on going to bed as it takes an hour to work. Antiviral medication is Tamiflu 75 mg twice daily for the next 5 days. First tablet was provided in the ED today take the next one at bedtime tonight. For the next 4 days as you're considered contagious for week after symptoms start.
[2017-06-15] MEDS ORDERED: Oseltamivir 75 MG Cap PO ONE (10:30)
== END 2017-06-15 11:03 | disposition home or self-care (01) ==
LOC: JD.ED 09:08
DX: J11.1 Influenza due to unidentified influenza virus with other respiratory manifestations (principal); J45.909 Unspecified asthma, uncomplicated; E66.9 Obesity, unspecified; Z79.899 Other long term (current) drug therapy; Z88.1 Allergy status to other antibiotic agents; Z88.8 Allergy status to other drugs, medicaments and biological substances
CPT/HCPCS: 87804; 99283; A9270

== ENCOUNTER 2017-12-01 06:55 | Day surgery (SDC) | payer BC, MEDICAID ==
[~2017-12-01 06:55] MED LIST: Lactated Ringers 1,000 ML IV SCH; Lidocaine 1%/Sod Bicarbonate in NS 8.4% 1 ML Syringe IDERM PRN; Sodium Chloride 0.9% 10 ML Syringe FLUSH PRN
[2017-12-01] MEDS ORDERED: Propofol 200 MG/20 ML SDV ONE (07:19)
[2017-12-01] MEDS ORDERED: Midazolam 1 MG/ML 2 ML SDV ONE (07:19)
[2017-12-01] MEDS ORDERED: fentaNYL 100 MCG/2 ML SDV ONE (07:19)
[2017-12-01] MEDS ORDERED: Lidocaine 1% 4 ML ONE (07:19)
--- NOTE | 2017-12-01 07:32 | PCM.PREANE ---
Preanesthetic Assessment - Anesthesia/Transfusion/Family Hx Anesthesia History: Prior Anesthesia Without Reaction Other Type of Anesthesia Reaction Comment: son had reaction to anesthesia at 2yrs old Family History of Anesthesia Reaction: No Type of Transfusion Reactions: Reports: Unknown - Review of Systems General: No Symptoms, Other (Chronic back pain. Chronic right shoulder pain. ) Pulmonary: No Symptoms, Other (No recent use of her inhaler.) Cardiovascular: Other (SVT - Ablation in 2011) Gastrointestinal: Abdominal Pain, Nausea (None this morning.) Neurological: No Symptoms Other: Reports: Thyroid Problems (Hypothyroidism), Depression, Anxiety (ADD) - Physical Assessment NPO Status Date: 11/30/17 NPO Status Time: 21:00 Pulse: 57 O2 Sat by Pulse Oximetry: 97 Respiratory Rate: 16 Blood Pressure: 101/73 Weight: 91.626 kg ASA Class: 2 Mental Status: Alert & Oriented x3 Airway Class: Mallampati = 1 Dentition: Reports: Broken Tooth/Teeth, Missing Tooth/Teeth, Caries (Loose teeth. Miriam states she is in the process of having her teeth removed. They are about half ways done. Appear loose, and black/rotten at gumline. ) Thyro-Mental Finger Breadths: 3 Mouth Opening Finger Breadths: 3 ROM/Head Extension: Full Lungs: Clear to Auscultation, Normal Respiratory Effort Cardiovascular: Regular Rate, Regular Rhythm - Allergies Allergies/Adverse Reactions: Allergies Allergy/AdvReac Type Severity Reaction Status Date / Time Cephalosporins Allergy Unknown Hives Verified 11/28/17 14:13 cefprozil [From Cefzil] Allergy Hives Verified 11/28/17 14:13 gabapentin [From Neurontin] AdvReac Unknown Confusion Verified 11/28/17 14:13 clonidine AdvReac Bradycardia Verified 11/28/17 14:13 - Acknowledgements Anesthesia Type Planned: MAC Pt an Appropriate Candidate for the Planned Anesthesia: Yes Alternatives and Risks of Anesthesia Discussed w Pt/Guardian: Yes Pt/Guardian Understands and Agrees with Anesthesia Plan: Yes Additional Comments: Miriam is concerned her front tooth with come out during the procedure. She is able to wiggle the tooth with her finger. I explained to her the bite block and the scope that is used for the procedure. She understands that she may bite down on the scope while under anesthesia and with her tooth being so loose it could become dislodged. She verbalized her understanding. We will be as careful as we can be with her teeth. 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: Dysfunctional Uterine Bleeding, , Spontaneous Other OB/BYN History: Has had 3 miscarriages and hysterectomy Musculoskeletal History: Reports: Fracture Other Musculoskeletal History: right carpal tunnel syndrome, back pain, shoulder tendinits, chronic pain, c spine pain, SI joint pain, Left should arthroscopy Neurological History: Reports: None Psychiatric History: Reports: ADD, ADHD, Addiction, Anxiety, Depression, Emotional Problems, Panic Attack, Psych Hospitalization(s) Other Psychiatric History: chronic pain syndrome Endocrine/Metabolic History: Reports: Hypothyroidism, Obesity/BMI 30+, Vitamin D Deficiency Hematologic History: Reports: Anemia, Iron Deficiency Immunologic History: Reports: None Oncologic (Cancer) History: Reports: None Dermatologic History: Reports: Seborrheic Dermatitis Other Dermatologic History: neoplasm of face, folliculitis, intradermal nevus - Infectious Disease History Infectious Disease History: Reports: Chicken Pox - Past Surgical History Head Surgeries/Procedures: Reports: None HEENT Surgical History: Reports: Oral Surgery Cardiovascular Surgical History: Reports: Cardiac Ablation Other Cardiovascular Surgeries/Procedures: Had an oblation done for the SVT, and has not had any problems with tachycardia, chest pain, or trouble breathing since the procedure Respiratory Surgical History: Reports: None GI Surgical History: Reports: Colonoscopy, EGD Female Surgical History: Reports: D&C, Hysterectomy Endocrine Surgical History: Reports: None Neurological Surgical History: Reports: None Musculoskeletal Surgical History: Reports: Shoulder Surgery Dermatological Surgical History: Reports: Skin Biopsy - SUBSTANCE USE Smoking Status *Q: Never Smoker Recreational Drug Use History: No - HOME MEDS Home Medications: Home Meds Pregabalin [Lyrica] 1 tab PO TID 06/14/15 [History] Omeprazole 20 mg PO BID 06/16/15 [History] ClonazePAM [KlonoPIN] 0.5 mg PO TID PRN 07/03/15 [History] Methylphenidate HCl [Ritalin] 10 mg PO BID 10/06/15 [History] Sucralfate [Carafate] 10 mg PO TID PRN 10/06/15 [History] traZODone 100 mg PO BEDTIME 10/06/15 [History] Albuterol Sulfate [Proair Hfa] 8.5 gm IH Q4HR PRN 01/19/16 [History] oxyCODONE HCl/Acetaminophen [Percocet 5-325 mg Tablet] 1 each PO BEDTIME PRN 10/09 [History] Montelukast [Singulair] 10 mg PO BEDTIME 03/10/17 [History] Diclofenac Sodium [Voltaren] 1 dose TOP ASDIRECTED 11/28/17 [History] Ketoconazole 1 dose TOP ASDIRECTED 11/28/17 [History] Ondansetron [Ondansetron ODT] 4 mg PO Q8H PRN 11/28/17 [History] Sertraline HCl 50 mg PO DAILY 11/28/17 [History] - CURRENT (IN HOUSE) MEDS Current Meds: Current Medications Lactated Ringer's (Ringers, Lactated) 1,000 mls @ 125 mls/hr IV ASDIRECTED JULIANN Stop: 12/01/17 23:00 Lidocaine/Sodium Bicarbonate (Buffered Lidocaine 1% In Ns 8.4%) 0.25 ml IDERM ONETIME PRN PRN Reason: Prior to IV Start Stop: 12/01/17 18:00 Sodium Chloride (Saline Flush) 10 ml FLUSH ASDIRECTED PRN PRN Reason: Keep Vein Open Stop: 12/01/17 18:00
[2017-12-01] MEDS ORDERED: Ondansetron 4 MG/2 ML SDV ONE (08:32)
[2017-12-01 08:44] VITALS: BP 145/85
--- NOTE | 2017-12-01 08:45 | PCM48HPAN ---
Post Anesthesia Note - EVALUATION WITHIN 48HRS OF ANESTHETIC Vital Signs in Normal Range: Yes Patient Participated in Evaluation: Yes Respiratory Function Stable: Yes Airway Patent: Yes Cardiovascular Function Stable: Yes Hydration Status Stable: Yes Pain Control Satisfactory: Yes Nausea and Vomiting Control Satisfactory: Yes Mental Status Recovered: Yes Pulse Rate: 71 SaO2: 95 Resp Rate: 18 Temperature: 36.8 C Blood Pressure: 145/85 - COMMENTS/OBSERVATIONS Free Text/Narrative:: Teeth unchanged.
--- NOTE | 2017-12-01 09:02 | PCM.OPNOTE ---
- General Post-Op/Procedure Note Date of Surgery/Procedure: 12/01/17 Operative Procedure(s): Esophagogastroduodenoscopy with antral biopsy Findings: Distal antritis associated with edema of the pyloric channel leading to partial gastric outlet obstruction, as manifested by retained food within the body of stomach. There were no galina ulcers of the duodenum or stomach. Pre Op Diagnosis: Dyspepsia and history of type III gastric ulcers Post-Op Diagnosis: Antritis Anesthesia Technique: MAC, Moderate Sedation Primary Surgeon: Jimmy Palmer Pathology: Antral biopsy EBL in mLs: 0 Surgical Drain/Tube Type: NPWT Drainage Amount Complications: None Condition: Good Free Text/Narrative:: After adequate IV sedation and analgesia was obtained with monitoring a lubricated upper endoscope was inserted through a bite-block into the esophagus without difficulty. The scope was advanced under direct vision towards the stomach. Additional air was given here followed by visualization of old retained food and liquids. There was no chronic blood present. I advanced the scope towards the antrum and the prepyloric area had patchy areas of erythema and early superficial erosions in a couple areas. The previously seen ulcers were not present. The pyloric channel was edematous and after simply passing the scope through this area there was some bleeding. There was no stricture seen or scarring present. The first part and second part of the duodenum were endoscopically normal and had no inflammatory changes. I took a biopsy of the area of erythema and edema in the antrum. In the retroflexed view there was no hiatal hernia. There was a large amount of retained liquefied food present. The folds of the stomach were grossly normal. The lesser curve had no ulcers. The GE junction was endoscopically normal. The body of the esophagus and pharynx were normal as well. Photographs were taken for the patient and for the medical record. Air was removed as I finished the procedure which she tolerated well.
== END 2017-12-01 09:15 | disposition home or self-care (01) ==
LOC: JD.SDS 06:55
PROVIDERS: ATTEND Surgery
DX: K29.50 Unspecified chronic gastritis without bleeding (principal); K31.9 Disease of stomach and duodenum, unspecified; Z87.11 Personal history of peptic ulcer disease; I10 Essential (primary) hypertension; J45.909 Unspecified asthma, uncomplicated; E66.01 Morbid (severe) obesity due to excess calories; Z68.37 Body mass index [BMI] 37.0-37.9, adult; K21.9 Gastro-esophageal reflux disease without esophagitis; D64.9 Anemia, unspecified; E03.9 Hypothyroidism, unspecified; F41.9 Anxiety disorder, unspecified; F32.9 Major depressive disorder, single episode, unspecified; Z79.899 Other long term (current) drug therapy; Z88.1 Allergy status to other antibiotic agents; Z88.8 Allergy status to other drugs, medicaments and biological substances
CPT/HCPCS: J2001; J2250; J2405; J2704; J3010; J7120

== ENCOUNTER 2017-12-08 10:32 | Emergency (ER) | payer MEDICAID ==
[2017-12-08 10:50] VITALS: BP 138/96
--- NOTE | 2017-12-08 11:19 | EDM.PDOC ---
<Sourav Morales - Last Filed: 12/08/17 11:58> ED HPI GENERAL MEDICAL PROBLEM - General Chief Complaint: Respiratory Problem Stated Complaint: COUGH AND CONGESTION Time Seen by Provider: 12/08/17 10:52 - History of Present Illness INITIAL COMMENTS - FREE TEXT/NARRATIVE: Miriam presents today with a one-week history of cough, congestion, and wheezing. She was seen by her PCP in the clinic last friday the for these symptoms, and received azithromycin and prednisone. She finished both prescriptions, but her symptoms have not improved. She was unable to get an appointment with her PCP today. She has been using her as-needed ProAir inhaler more than ordered, although she does not know how many doses she uses per day. She is producing green-colored sputum occasionally. She gets short of breath with activity and when lying flat. Miriam denies chest pain, fever, chills, syncope, nausea, vomiting, or leg swelling. Onset Date: 12/01/17 Duration: Getting Worse Location: Reports: Chest Severity: Moderate Improves with: Reports: None Worsens with: Reports: Other (lying flat), Movement Associated Symptoms: Reports: Cough, cough w sputum, Headaches, Loss of Appetite , Shortness of Breath. 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, Other Medication(s) Right Shoulder Pain Score (Numeric/FACES): 4 (Pain occurs with sever coughing) - Related Data Allergies Allergy/AdvReac Type Severity Reaction Status Date / Time Cephalosporins Allergy Unknown Hives Verified 12/08/17 10:39 cefprozil [From Cefzil] Allergy Hives Verified 12/08/17 10:39 gabapentin [From Neurontin] AdvReac Unknown Confusion Verified 12/08/17 10:39 clonidine AdvReac Bradycardia Verified 12/08/17 10:39 Home Meds: Home Meds Pregabalin [Lyrica] 1 tab PO TID 06/14/15 [History] Omeprazole 20 mg PO BID 06/16/15 [History] ClonazePAM [KlonoPIN] 0.5 mg PO TID PRN 07/03/15 [History] Methylphenidate HCl [Ritalin] 10 mg PO BID 10/06/15 [History] Sucralfate [Carafate] 10 mg PO TID PRN 10/06/15 [History] traZODone 100 mg PO BEDTIME 10/06/15 [History] Albuterol Sulfate [Proair Hfa] 8.5 gm IH Q4HR PRN 01/19/16 [History] oxyCODONE HCl/Acetaminophen [Percocet 5-325 mg Tablet] 1 each PO BEDTIME PRN 10/09 [History] Montelukast [Singulair] 10 mg PO BEDTIME 03/10/17 [History] Ketoconazole 1 dose TOP ASDIRECTED 11/28/17 [History] Ondansetron [Ondansetron ODT] 4 mg PO Q8H PRN 11/28/17 [History] Sertraline HCl 50 mg PO DAILY 11/28/17 [History] Codeine/Promethazine [Phenergan with Codeine] 5 - 10 ml PO Q6HR PRN #240 ml [Rx] Hydrocodone/Acetaminophen [Hydrocodon-Acetaminophen 5-325] 1 - 2 each PO Q6HR PRN #20 tablet 12/08/17 [Rx] Loratadine [Claritin] 10 mg PO DAILY #15 tab 12/08/17 [Rx] Past Medical History HEENT History: Reports: Sinusitis, Other (See Below) Other HEENT History: dental issues Cardiovascular History: Reports: Arrhythmia Other Cardiovascular History: SVT, ABLATION Respiratory History: Reports: Asthma Other Respiratory History: NO PROBLEM FOR 15 YRS Gastrointestinal History: Reports: Gastritis, GERD Other Gastrointestinal History: gastric ulcers, dysphagia, GERD, nausea Genitourinary History: Reports: Other (See Below) Other Genitourinary History: dysuria POISON INFORMATION SPECIALIST History: Reports: Dysfunctional Uterine Bleeding, , Spontaneous Other POISON INFORMATION SPECIALIST History: Has had 3 miscarriages and hysterectomy Musculoskeletal History: Reports: Fracture Other Musculoskeletal History: right carpal tunnel syndrome, back pain, shoulder tendinits, chronic pain, c spine pain, SI joint pain, Left should arthroscopy Neurological History: Reports: None Psychiatric History: Reports: ADD, ADHD, Addiction, Anxiety, Depression, Emotional Problems, Panic Attack, Psych Hospitalization(s) Other Psychiatric History: chronic pain syndrome Endocrine/Metabolic History: Reports: Hypothyroidism, Obesity/BMI 30+, Vitamin D Deficiency Hematologic History: Reports: Anemia, Iron Deficiency Immunologic History: Reports: None Oncologic (Cancer) History: Reports: None Dermatologic History: Reports: Seborrheic Dermatitis Other Dermatologic History: neoplasm of face, folliculitis, intradermal nevus - Infectious Disease History Infectious Disease History: Reports: Chicken Pox - Past Surgical History Head Surgeries/Procedures: Reports: None HEENT Surgical History: Reports: Oral Surgery Cardiovascular Surgical History: Reports: Cardiac Ablation Other Cardiovascular Surgeries/Procedures: Had an oblation done for the SVT, and has not had any problems with tachycardia, chest pain, or trouble breathing since the procedure Respiratory Surgical History: Reports: None GI Surgical History: Reports: Colonoscopy, EGD Female Surgical History: Reports: D&C, Hysterectomy Endocrine Surgical History: Reports: None Neurological Surgical History: Reports: None Musculoskeletal Surgical History: Reports: Shoulder Surgery Dermatological Surgical History: Reports: Skin Biopsy Social & Family History - Family History Family Medical History: Noncontributory GI: Reports: Hepatitis - Tobacco Use Smoking Status *Q: Never Smoker - Caffeine Use Caffeine Use: Reports: Soda - Recreational Drug Use Recreational Drug Use: Yes Drug Use in Last 12 Months: No Recreational Drug Type: Reports: Cocaine, Marijuana/Hashish Recreational Drug Use Frequency: Not Used In Over 1 Year - Living Situation & Occupation Living situation: Reports: , with Significant Other (Fiance) Occupation: Employed ([employer]) ED ROS GENERAL - Review of Systems Constitutional: Reports: No Symptoms, Decreased Appetite. Denies: Fever, Chills , Night Sweats HEENT: Denies: Ear Discharge, Sinus Problem, Throat Pain, Throat Swelling Respiratory: Reports: Shortness of Breath (with activity), Wheezing, Cough, Sputum (green, small amount, occaisonal). Denies: Hemoptysis Cardiovascular: Denies: Chest Pain, Edema, Lightheadedness, Palpitations, Syncope GI/Abdominal: Reports: No Symptoms. Denies: Abdominal Pain, Constipation, Diarrhea, Nausea, Vomiting Musculoskeletal: Reports: Shoulder Pain (chronic shoulder pain, aggravated by cough) ED EXAM, GENERAL - Physical Exam Exam: See Below Exam Limited By: No Limitations General Appearance: Alert, WD/WN Ears: Normal External Exam, Normal Canal, Normal TMs Nose: Nasal Drainage Throat/Mouth: Normal Inspection, Normal Oropharynx Head: Atraumatic, Normocephalic. No: Sinus Tenderness Neck: Normal Inspection, Supple, Non-Tender Respiratory/Chest: Wheezing (bilateral, inspiratory and expiratory) Cardiovascular: Normal Peripheral Pulses, Regular Rate, Rhythm, No Edema, No Murmur GI/Abdominal: Normal Bowel Sounds, Soft, Non-Tender Course - Vital Signs Last Recorded V/S: Last Vital Signs Temp 97.8 F 12/08/17 10:44 Pulse 62 12/08/17 10:44 Resp 20 12/08/17 10:44 BP 138/96 H 12/08/17 10:44 Pulse Ox 95 12/08/17 10:44 - Orders/Labs/Meds Orders: Active Orders 24 hr Category Date Time Status RT Aerosol Therapy [RC] ASDIRECTED Care 12/08/17 11:59 Active Chest 2V [CR] Stat Exams 12/08/17 11:13 Taken Labs: Laboratory Tests 12/08/17 12/08/17 Range/Units 11:25 11:25 WBC 8.58 (3.98-10.04) K/mm3 RBC 4.52 (3.98-5.22) M/mm3 Hgb 10.1 L (11.2-15.7) gm/L Hct 33.2 L (34.1-44.9) % MCV 73.5 L (79.4-94.8) fl MCH 22.3 L (25.6-32.2) pg MCHC 30.4 L (32.2-35.5) g/dl RDW Std Deviation 48.5 H (36.4-46.3) fL Plt Count 502 H (182-369) K/mm3 MPV 8.2 L (9.4-12.3) fl Neut % (Auto) 51.9 (34.0-71.1) % Lymph % (Auto) 35.3 (19.3-51.7) % Potter % (Auto) 10.6 (4.7-12.5) % Eos % (Auto) 1.3 (0.7-5.8) Baso % (Auto) 0.6 (0.1-1.2) % Neut # (Auto) 4.45 (1.56-6.13) K/mm3 Lymph # (Auto) 3.03 (1.18-3.74) K/mm3 Potter # (Auto) 0.91 H (0.24-0.36) K/mm3 Eos # (Auto) 0.11 (0.04-0.36) K/mm3 Baso # (Auto) 0.05 (0.01-0.08) K/mm3 Manual Slide Review Abnormal smear Sodium 137 (136-145) mEq/L Potassium 2.7 L (3.5-5.1) mEq/L Chloride 100 (98-107) mEq/L Carbon Dioxide 29 (21-32) mEq/L Anion Gap 10.7 (5-15) BUN 11 (7-18) mg/dL Creatinine 1.0 (0.55-1.02) mg/dL Est Cr Clr Drug Dosing 57.96 mL/min Estimated GFR (MDRD) > 60 (>60) mL/min BUN/Creatinine Ratio 11.0 L (14-18) Glucose 96 (74-106) mg/dL Calcium 8.7 (8.5-10.1) mg/dL Total Bilirubin 0.3 (0.2-1.0) mg/dL AST 9 L (15-37) U/L ALT 9 L (14-59) U/L Alkaline Phosphatase 60 (46-116) U/L Total Protein 8.0 (6.4-8.2) g/dl Albumin 3.6 (3.4-5.0) g/dl Globulin 4.4 gm/dL Albumin/Globulin Ratio 0.8 L (1-2) Meds: Medications Discontinued Medications Generic Name Dose Route Start Last Admin Trade Name Freq PRN Reason Stop Dose Admin Albuterol/Ipratropium 3 ml 12/08/17 11:59 12/08/17 12:23 Duoneb 3.0-0.5 Mg/3 Ml NEB 12/08/17 12:00 3 ml ONETIME ONE Administration Departure - Departure Disposition: Home, Self-Care 01 Clinical Impression: Cough - Discharge Information Prescriptions: Codeine/Promethazine [Phenergan with Codeine] 5 - 10 ml PO Q6HR PRN #240 ml PRN Reason: Cough Hydrocodone/Acetaminophen [Hydrocodon-Acetaminophen 5-325] 1 - 2 each PO Q6HR PRN #20 tablet PRN Reason: Pain Loratadine [Claritin] 10 mg PO DAILY #15 tab Referrals: Yusef Ochoa, KATIE [Primary Care Provider] - 3 Days Forms: ED Department Discharge Additional Instructions: Take the claritin 10mg daily and the phenergan with codiene every 6 hours as needed for cough. Keep using the inhaler. Follow up with Yusef Ochoa as scheduled. - My Orders Last 24 Hours: My Active Orders 12/08/17 11:59 RT Aerosol Therapy [RC] ASDIRECTED - Assessment/Plan Last 24 Hours: My Active Orders 12/08/17 11:59 RT Aerosol Therapy [RC] ASDIRECTED <Giuliano Caceres - Last Filed: 12/08/17 13:00> ED ROS GENERAL - Review of Systems Review Of Systems: See Below ED EXAM, GENERAL - Physical Exam Exam: See Below Course - Re-Assessments/Exams Free Text/Narrative Re-Assessment/Exam: 12/08/17 12:39 I examined the patient and I agreed with Laure's assessment and plan. Her CXR is negative. Her Hgb was a little low at 10.1. Her K was a little low at 2.7. I gave her a duoneb. That maybe helped some. She does not want to be on any steroids. I feel that would help, but I will respect her wishes. I will get her on some phenergan with codeine and I will get her on some claritin. This may be allergy related. Departure - Departure Time of Disposition: 12:50 Condition: Good - Discharge Information *PRESCRIPTION DRUG MONITORING PROGRAM REVIEWED*: Not Applicable *COPY OF PRESCRIPTION DRUG MONITORING REPORT IN PATIENT DIANNE: Not Applicable
[2017-12-08] MEDS ORDERED: Albuterol/Ipratropium 3.0-0.5 MG/3 ML Neb Soln NEB ONE (11:59)
--- NOTE | 2017-12-08 14:51 | CR ---
Chest: Two views of the chest were obtained. Comparison: Previous chest x-ray of 01/19/16. Heart size and mediastinum are normal. Lungs are clear. Bony structures appear within normal limits for the patient's age. Impression: 1. Nothing acute is seen on two-view chest x-ray. Diagnostic code #1
== END 2017-12-08 13:15 | disposition home or self-care (01) ==
LOC: JD.ED 10:32
DX: R05 Cough (principal); Z88.1 Allergy status to other antibiotic agents; Z88.8 Allergy status to other drugs, medicaments and biological substances; Z79.899 Other long term (current) drug therapy
CPT/HCPCS: 36415; 71046; 71046-26; 80053; 85025; 94640; 99283; 99284-25

== ENCOUNTER 2018-01-23 19:37 | Emergency (ER) | payer BC, MEDICAID ==
[2018-01-23 20:13] VITALS: BP 131/85
[2018-01-23] MEDS ORDERED: Sodium Chloride 0.9% 10 ML Syringe FLUSH PRN (20:38)
[2018-01-23] MEDS ORDERED: HYDROmorphone 0.5 MG/0.5 ML SYRINGE IVPUSH ONE ×2 (20:38→22:06)
[2018-01-23] MEDS ORDERED: Sodium Chloride 0.9% 1,000 ML IV ONE (20:38)
--- NOTE | 2018-01-23 20:43 | EDM.PDOC ---
ED HPI GENERAL MEDICAL PROBLEM - General Chief Complaint: Genitourinary Problem Stated Complaint: BLOOD IN URINE Time Seen by Provider: 01/23/18 20:15 Source of Information: Reports: Patient History Limitations: Reports: No Limitations - History of Present Illness INITIAL COMMENTS - FREE TEXT/NARRATIVE: Patient is a 42-year-old female presents to the ED with concerns of blood within her urine and low back pain. Patient states earlier today urinated and noticed blood within the toilet and also on the toilet paper described as minimal. This persisted throughout the course today. Pain to the back along the waistline bilateral crampy achy sensation. She has not been feeling well all day. She has no history of frequent UTIs and/or pyelonephritis. She denies history of kidney stones. She denies any recent sexual activity that precipitated vaginal tears or pain. She denies any fever, chills, nausea/ vomiting, abdominal pain, or any additional complaints. - Related Data Allergies Allergy/AdvReac Type Severity Reaction Status Date / Time Cephalosporins Allergy Unknown Hives Verified 01/23/18 20:12 cefprozil [From Cefzil] Allergy Hives Verified 01/23/18 20:12 gabapentin [From Neurontin] AdvReac Unknown Confusion Verified 01/23/18 20:12 clonidine AdvReac Bradycardia Verified 01/23/18 20:12 Home Meds: Home Meds Omeprazole 20 mg PO BID 06/16/15 [History] ClonazePAM [KlonoPIN] 0.5 mg PO TID PRN 07/03/15 [History] Methylphenidate HCl [Ritalin] 10 mg PO BID 10/06/15 [History] Sucralfate [Carafate] 10 mg PO TID PRN 10/06/15 [History] traZODone 100 mg PO BEDTIME 10/06/15 [History] Albuterol Sulfate [Proair Hfa] 8.5 gm IH Q4HR PRN 01/19/16 [History] oxyCODONE HCl/Acetaminophen [Percocet 5-325 mg Tablet] 1 each PO BEDTIME PRN 10/09 [History] Montelukast [Singulair] 10 mg PO BEDTIME 03/10/17 [History] Ondansetron [Ondansetron ODT] 4 mg PO Q8H PRN 11/28/17 [History] Sertraline HCl 50 mg PO DAILY 11/28/17 [History] Loratadine [Claritin] 10 mg PO DAILY #15 tab 12/08/17 [Rx] Past Medical History HEENT History: Reports: Sinusitis, Other (See Below) Other HEENT History: dental issues Cardiovascular History: Reports: Arrhythmia Other Cardiovascular History: SVT, ABLATION Respiratory History: Reports: Asthma Other Respiratory History: NO PROBLEM FOR 15 YRS Gastrointestinal History: Reports: Gastritis, GERD Other Gastrointestinal History: gastric ulcers, dysphagia, GERD, nausea Genitourinary History: Reports: Other (See Below) Other Genitourinary History: dysuria 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 AND 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: Reports: Dysfunctional Uterine Bleeding, , Spontaneous Other 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 AND 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: Has had 3 miscarriages and hysterectomy Musculoskeletal History: Reports: Fracture Other Musculoskeletal History: right carpal tunnel syndrome, back pain, shoulder tendinits, chronic pain, c spine pain, SI joint pain, Left should arthroscopy Neurological History: Reports: None Psychiatric History: Reports: ADD, ADHD, Addiction, Anxiety, Depression, Emotional Problems, Panic Attack, Psych Hospitalization(s) Other Psychiatric History: chronic pain syndrome Endocrine/Metabolic History: Reports: Hypothyroidism, Obesity/BMI 30+, Vitamin D Deficiency Hematologic History: Reports: Anemia, Iron Deficiency Immunologic History: Reports: None Oncologic (Cancer) History: Reports: None Dermatologic History: Reports: Seborrheic Dermatitis Other Dermatologic History: neoplasm of face, folliculitis, intradermal nevus - Infectious Disease History Infectious Disease History: Reports: Chicken Pox - Past Surgical History Head Surgeries/Procedures: Reports: None HEENT Surgical History: Reports: Oral Surgery Cardiovascular Surgical History: Reports: Cardiac Ablation Other Cardiovascular Surgeries/Procedures: Had an oblation done for the SVT, and has not had any problems with tachycardia, chest pain, or trouble breathing since the procedure Respiratory Surgical History: Reports: None GI Surgical History: Reports: Colonoscopy, EGD Female Surgical History: Reports: D&C, Hysterectomy Endocrine Surgical History: Reports: None Neurological Surgical History: Reports: None Musculoskeletal Surgical History: Reports: Shoulder Surgery Dermatological Surgical History: Reports: Skin Biopsy Social & Family History - Family History Family Medical History: Noncontributory GI: Reports: Hepatitis - Tobacco Use Smoking Status *Q: Never Smoker - Caffeine Use Caffeine Use: Reports: Soda - Recreational Drug Use Recreational Drug Use: No - Living Situation & Occupation Living situation: Reports: , with Significant Other (Fiance) Occupation: Employed ([employer]) ED ROS GENERAL - Review of Systems Review Of Systems: See Below ED EXAM, RENAL/ - Physical Exam Exam: See Below Exam Limited By: No Limitations General Appearance: Alert, WD/WN, No Apparent Distress Ears: Hearing Grossly Normal Nose: Normal Inspection Throat/Mouth: Normal Voice, No Airway Compromise Neck: Normal Inspection, Supple Respiratory/Chest: No Respiratory Distress, Lungs Clear, Normal Breath Sounds Cardiovascular: Normal Peripheral Pulses, Regular Rate, Rhythm, No Murmur GI/Abdominal: Normal Bowel Sounds, Soft, Non-Tender, No Organomegaly, No Distention Back Exam: Normal Inspection, Paraspinal Tenderness (Low back bilateral waistline.). No: CVA Tenderness (L), CVA Tenderness (R), Vertebral Tenderness Neurological: Alert, Oriented, CN II-XII Intact, Normal Cognition Psychiatric: Normal Affect, Normal Mood Skin Exam: Warm, Dry, Intact, Normal Color Course - Vital Signs Last Recorded V/S: Last Vital Signs Temp 97.6 F 01/23/18 20:08 Pulse 64 01/23/18 20:08 Resp 18 01/23/18 20:08 BP 131/85 01/23/18 20:08 Pulse Ox 100 01/23/18 20:08 - Orders/Labs/Meds Labs: Laboratory Tests 01/23/18 01/23/18 01/23/18 Range/Units 20:17 20:35 20:35 WBC 5.17 (3.98-10.04) K/mm3 RBC 4.32 (3.98-5.22) M/mm3 Hgb 9.9 L (11.2-15.7) gm/L Hct 32.5 L (34.1-44.9) % MCV 75.2 L (79.4-94.8) fl MCH 22.9 L (25.6-32.2) pg MCHC 30.5 L (32.2-35.5) g/dl RDW Std Deviation 44.1 (36.4-46.3) fL Plt Count 398 H (182-369) K/mm3 MPV 8.9 L (9.4-12.3) fl Neutrophils % (Manual) 67 H (40-60) % Band Neutrophils % 0 (0-10) % Lymphocytes % (Manual) 27 (20-40) % Atypical Lymphs % 0 % Monocytes % (Manual) 2 (2-10) % Eosinophils % (Manual) 4 (0.7-5.8) % Basophils % (Manual) 0 L (0.1-1.2) Platelet Estimate Adequate RBC Morph Comment Normal PT 10.3 (9.5-12.1) SECONDS INR 0.94 APTT 34 H (24-31) SECONDS Sodium (136-145) mEq/L Potassium (3.5-5.1) mEq/L Chloride (98-107) mEq/L Carbon Dioxide (21-32) mEq/L Anion Gap (5-15) BUN (7-18) mg/dL Creatinine (0.55-1.02) mg/dL Est Cr Clr Drug Dosing mL/min Estimated GFR (MDRD) (>60) mL/min BUN/Creatinine Ratio (14-18) Glucose (74-106) mg/dL Calcium (8.5-10.1) mg/dL Total Bilirubin (0.2-1.0) mg/dL AST (15-37) U/L ALT (14-59) U/L Alkaline Phosphatase (46-116) U/L C-Reactive Protein (<1.0) mg/dL Total Protein (6.4-8.2) g/dl Albumin (3.4-5.0) g/dl Globulin gm/dL Albumin/Globulin Ratio (1-2) Urine Color Yellow (Yellow) Urine Appearance Clear (Clear) Urine pH 5.5 (5.0-8.0) Ur Specific [place] 1.020 (1.005-1.030) Urine Protein Negative (Negative) Urine Glucose (UA) Negative (Negative) Urine Ketones Negative (Negative) Urine Occult Blood 1+ H (Negative) Urine Nitrite Negative (Negative) Urine Bilirubin Negative (Negative) Urine Urobilinogen 0.2 (0.2-1.0) Ur Leukocyte Esterase Negative (Negative) Urine RBC 0-5 (0-5) /hpf Urine WBC 0-5 (0-5) /hpf Ur Epithelial Cells 0-5 (0-5) /hpf Urine Bacteria Few (FEW) /hpf Urine Mucus Few (FEW) /hpf 01/23/18 Range/Units 20:35 WBC (3.98-10.04) K/mm3 RBC (3.98-5.22) M/mm3 Hgb (11.2-15.7) gm/L Hct (34.1-44.9) % MCV (79.4-94.8) fl MCH (25.6-32.2) pg MCHC (32.2-35.5) g/dl RDW Std Deviation (36.4-46.3) fL Plt Count (182-369) K/mm3 MPV (9.4-12.3) fl Neutrophils % (Manual) (40-60) % Band Neutrophils % (0-10) % Lymphocytes % (Manual) (20-40) % Atypical Lymphs % % Monocytes % (Manual) (2-10) % Eosinophils % (Manual) (0.7-5.8) % Basophils % (Manual) (0.1-1.2) Platelet Estimate RBC Morph Comment PT (9.5-12.1) SECONDS INR APTT (24-31) SECONDS Sodium 135 L (136-145) mEq/L Potassium 3.7 (3.5-5.1) mEq/L Chloride 98 (98-107) mEq/L Carbon Dioxide 27 (21-32) mEq/L Anion Gap 13.7 (5-15) BUN 10 (7-18) mg/dL Creatinine 1.0 (0.55-1.02) mg/dL Est Cr Clr Drug Dosing 57.96 mL/min Estimated GFR (MDRD) > 60 (>60) mL/min BUN/Creatinine Ratio 10.0 L (14-18) Glucose 86 (74-106) mg/dL Calcium 9.0 (8.5-10.1) mg/dL Total Bilirubin 0.2 (0.2-1.0) mg/dL AST 13 L (15-37) U/L ALT 15 (14-59) U/L Alkaline Phosphatase 77 (46-116) U/L C-Reactive Protein 1.1 H* (<1.0) mg/dL Total Protein 8.5 H (6.4-8.2) g/dl Albumin 3.9 (3.4-5.0) g/dl Globulin 4.6 gm/dL Albumin/Globulin Ratio 0.9 L (1-2) Urine Color (Yellow) Urine Appearance (Clear) Urine pH (5.0-8.0) Ur Specific [place] (1.005-1.030) Urine Protein (Negative) Urine Glucose (UA) (Negative) Urine Ketones (Negative) Urine Occult Blood (Negative) Urine Nitrite (Negative) Urine Bilirubin (Negative) Urine Urobilinogen (0.2-1.0) Ur Leukocyte Esterase (Negative) Urine RBC (0-5) /hpf Urine WBC (0-5) /hpf Ur Epithelial Cells (0-5) /hpf Urine Bacteria (FEW) /hpf Urine Mucus (FEW) /hpf Meds: Medications Discontinued Medications Generic Name Dose Route Start Last Admin Trade Name Freq PRN Reason Stop Dose Admin Hydromorphone HCl 0.5 mg 01/23/18 20:38 01/23/18 20:52 Dilaudid IVPUSH 01/23/18 20:39 0.5 mg ONETIME ONE Administration Hydromorphone HCl 0.5 mg 01/23/18 22:06 01/23/18 22:11 Dilaudid IVPUSH 01/23/18 22:07 0.5 mg ONETIME ONE Administration Sodium Chloride 1,000 mls @ 999 mls/hr 01/23/18 20:38 01/23/18 20:52 Normal Saline IV 01/23/18 21:38 999 mls/hr ONETIME ONE Administration Iopamidol 125 ml 01/23/18 22:25 01/23/18 22:25 Isovue-300 (61%) IVPUSH 01/23/18 22:26 125 ml ONETIME ONE Administration Sodium Chloride 10 ml 01/23/18 20:38 01/23/18 20:54 Saline Flush FLUSH 10 ml ASDIRECTED PRN Administration Keep Vein Open - Re-Assessments/Exams Free Text/Narrative Re-Assessment/Exam: Patient presents the ED with complaining of bilateral low back pain with hematuria. She states earlier today has had the sensation of increased frequency of urination with small amounts coming out. With wiping she's noticed some small amount of blood within the toilet and on the blood present. She's developed this low back discomfort. There is no suprapubic discomfort noted at all. Is in no documented fever. No nausea or vomiting. She denies any history of kidney stones. She denies any pain to her vagina or recent sexual activity than may have precipitated a vaginal tear. Initial labs and studies will include: CBC, chem 14, CRP, coag studies, UA. IV established with normal saline and Dilaudid 0.5 mg IVP. Labs reviewed: Blood cell count 5.17, hemoglobin 9.9 which is close to baseline. Platelet count 398, sodium 135, CRP 1.1, 1+ occult blood in the urine. Not sure how to make out the UA sample. Patient had galina red blood on the tissue and also within the toilet. She denies a coming from her rectum. She denies any from her vagina. I have offered to do a speculum exam to further evaluate the etiology of the bleeding to which she has deferred. She will follow up with her 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 AND TESTER specialist first part of this week. CT of the abdomen and pelvis was essentially normal. We will discharge the patient home with instructions as documented. She is already taking oxycodone for chronic pain thus no additional prescription for narcotics will be discharged home with the patient. Departure - Departure Time of Disposition: 22:43 Disposition: Home, Self-Care 01 Condition: Good Clinical Impression: Hematuria Qualifiers: Hematuria type: gross Qualified Code(s): R31.0 - Gross hematuria - Discharge Information Instructions: Hematuria, Adult Referrals: Yusef Ochoa PA-C [Primary Care Provider] - Forms: ED Department Discharge Additional Instructions: Again I do not have clear etiology to where the bleeding is coming from. Bleeding only occurred with wiping after urination. Suggesting discomfort from your urinary tract. CT was essentially normal. UA only showed small amount of blood present. Thus the request you may contact with a urologist of your choice and Armaan for follow-up this coming week. I believe a cystoscopy is most likely required with the amount of blood that was present with wiping and in the toilet after urinating. You have had no blood present within your underwear suggesting other possible etiologies. Please monitor for frequency of bleeding and severity. Please return to the E.D. if you develop any new or worsening symptoms. If continued bleeding suggests coming from vagina please see 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 [employer] specialists of your choice for reexamination.
[2018-01-23] MEDS ORDERED: Iopamidol 612 MG/ML 150 ML Bottle IVPUSH ONE (22:25)
== END 2018-01-23 23:29 | disposition home or self-care (01) ==
LOC: JD.ED 19:37
DX: R31.0 Gross hematuria (principal); E66.9 Obesity, unspecified
CPT/HCPCS: 36415; 74177; 80053; 81001; 85007; 85027; 85610; 85730; 86140; 96361; 96374; 96376; 99284; J1170; J7040; J7050; Q9967

== ENCOUNTER 2018-09-20 15:25 | Emergency (ER) | payer OTHER, MEDICAID ==
[2018-09-20 15:43] VITALS: BP 137/106
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
[2018-09-20] MEDS ORDERED: Acetaminophen/HYDROcodone 325-5 MG Tab PO ONE (17:50)
--- NOTE | 2018-09-21 07:00 | CR ---
Right ankle: Four views of the right ankle were obtained. Comparison: No prior ankle exam. Ankle mortise is symmetric. No fracture, dislocation or other bony abnormality is seen. Impression: 1. No abnormality is appreciated on right ankle exam. Diagnostic code #1
== END 2018-09-20 18:15 | disposition home or self-care (01) ==
LOC: JD.ED 15:25
DX: S93.401A Sprain of unspecified ligament of right ankle, initial encounter (principal); S00.33XA Contusion of nose, initial encounter; K21.9 Gastro-esophageal reflux disease without esophagitis; F41.9 Anxiety disorder, unspecified; F32.9 Major depressive disorder, single episode, unspecified; Z79.899 Other long term (current) drug therapy; Z88.1 Allergy status to other antibiotic agents; Z88.8 Allergy status to other drugs, medicaments and biological substances; W10.9XXA Fall (on) (from) unspecified stairs and steps, initial encounter
CPT/HCPCS: 73610; 99283; A9270

== ENCOUNTER 2020-02-06 11:22 | Emergency (ER) | payer MEDICAID, OTHER ==
[2020-02-06 11:46] VITALS: BP 156/103; PULSE 65
[2020-02-06] MEDS ORDERED: Acetaminophen/oxyCODONE 325-5 MG Tab PO ONE (12:06)
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
--- NOTE | 2020-02-06 19:45 | CR ---
Right shoulder: 3 views of the right shoulder were obtained. Comparison: Prior right shoulder study of 11/17/17. Acromioclavicular joint is widened most likely relating to previous surgery. Glenohumeral joint appears normal. No acute fracture, dislocation or other bony abnormality is appreciated. Impression: 1. Probable surgery within the acromioclavicular joint which appears chronic. 2. Nothing acute is seen on right shoulder study. Diagnostic code #2 This report was dictated in MDT
--- NOTE | 2020-02-06 19:54 | CT ---
CT facial bones Technique: Multiple axial sections through the facial bones were obtained. Reconstructed coronal and sagittal images were obtained. Comparison: Prior CT facial bone study of 09/26/15. Findings: Mastoid sinuses are clear. Retention cyst is noted within the right maxillary sinus measuring 1.8 cm in size. Minimal areas of mucosal thickening are seen within the ethmoid sinuses. Chronic nasal septal deviation is seen. Right and left globes are symmetric. No facial bone fracture is appreciated. Impression: 1. Sinus findings as noted above which are appear to be chronic. 2. No acute facial bone fracture is appreciated. Diagnostic code #2 This report was dictated in MDT
== END 2020-02-06 13:20 | disposition home or self-care (01) ==
LOC: JD.ED 11:22
DX: S13.4XXA Sprain of ligaments of cervical spine, initial encounter (principal); S40.011A Contusion of right shoulder, initial encounter; S00.83XA Contusion of other part of head, initial encounter; F90.9 Attention-deficit hyperactivity disorder, unspecified type; F41.9 Anxiety disorder, unspecified; J45.909 Unspecified asthma, uncomplicated; F32.9 Major depressive disorder, single episode, unspecified; E03.9 Hypothyroidism, unspecified; E66.9 Obesity, unspecified; Z68.32 Body mass index [BMI] 32.0-32.9, adult; Z88.1 Allergy status to other antibiotic agents; Z88.8 Allergy status to other drugs, medicaments and biological substances; Z79.899 Other long term (current) drug therapy; Y04.0XXA Assault by unarmed brawl or fight, initial encounter
CPT/HCPCS: 70486; 73030; 99284; A9270